=== PATIENT | male | born 1990 | race African-American/Black ===

== ENCOUNTER 2016-09-07 16:39 | Emergency (ER) | payer BC | END 2016-09-07 18:50 | disposition home or self-care (01) | LOC: CFTX 16:39 → CED 16:39 → CFTX 18:47 | DX: S33.5XXA Sprain of ligaments of lumbar spine, initial encounter (principal); M62.830 Muscle spasm of back; Y93.67 Activity, basketball | CPT/HCPCS: 99283 ==

== ENCOUNTER 2016-09-26 03:23 | Emergency (ER) | payer BC ==
[~2016-09-26] VITALS: Ht 190.5 cm; Wt 83.9 kg
== END 2016-09-26 05:05 | disposition home or self-care (01) ==
LOC: CED 03:23
DX: S05.02XA Injury of conjunctiva and corneal abrasion without foreign body, left eye, initial encounter (principal); H10.32 Unspecified acute conjunctivitis, left eye; X58.XXXA Exposure to other specified factors, initial encounter; Y92.009 Unspecified place in unspecified non-institutional (private) residence as the place of occurrence of the external cause
CPT/HCPCS: 99283